=== PATIENT | female | born 1990 | race African-American/Black ===

== ENCOUNTER 2016-06-10 16:13 | Emergency (ER) | payer MEDICAID ==
[2016-06-10 16:24] VITALS: BP 131/85
--- NOTE | 2016-06-10 16:41 | ER Document Report ---
ED Medical Screen (RME) - General Chief Complaint: Vaginal Discharge Stated Complaint: ABDOMINAL PAIN, VAGINAL DISCHARGE Time seen by provider: 16:39 Mode of Arrival: Ambulatory Information source: Patient Notes: 25-year-old female presents to ED for vaginal discharge brown colored and abdominal pain that comes and goes for 3 days. States her period is due on but she has not started yet. Denies any nausea or vomiting. I have greeted and performed a rapid initial assessment of this patient. A comprehensive ED assessment and evaluation of the patient, analysis of test results and completion of medical decision making process will be conducted by an additional ED providers. TRAVEL OUTSIDE OF THE [place] IN LAST 30 DAYS: No - Related Data Allergies/Adverse Reactions: No Known Allergies Allergy (Unverified 02/04/16 15:36) Past Medical History Psychiatric Medical History: Reports: Hx Attention Deficit Hyperactivity Disorder Physical Exam - Vital signs Vitals: Temp Pulse Resp BP Pulse Ox 98.5 F 86 16 131/85 H 100 06/10/16 16:23 06/10/16 16:23 06/10/16 16:23 06/10/16 16:23 06/10/16 16:23 Course - Vital Signs Vital signs: Temp Pulse Resp BP Pulse Ox 98.5 F 86 16 131/85 H 100 06/10/16 16:23 06/10/16 16:23 06/10/16 16:23 06/10/16 16:23 06/10/16 16:23
[2016-06-10 17:19] LABS: APPEARANCE,URINE SLIGHTLY-CLOUDY; BILIRUBIN,URINE NEGATIVE (NEGATIVE); GLUCOSE, URINE NEGATIVE (NEGATIVE); KETONES,URINE NEGATIVE (NEGATIVE); LEUKOCYTE ESTERASE,URINE TRACE (NEGATIVE); NITRITE,URINE POSITIVE (NEGATIVE); PROTEIN,URINE 30 mg/dL (NEGATIVE); UROBILINOGEN,URINE NEGATIVE mg/dL (<2.0)
[2016-06-10 18:31] LABS: CHLAM PCR DETECTED (NOT DETECT)
== END 2016-06-10 18:30 | disposition left against medical advice (07) ==
LOC: ER 16:13
DX: N89.8 Other specified noninflammatory disorders of vagina (principal); R10.9 Unspecified abdominal pain; Z53.9 Procedure and treatment not carried out, unspecified reason
CPT/HCPCS: 81001; 81025; 87491; 87591; 99281

== ENCOUNTER 2016-06-11 11:25 | Emergency (ER) | payer MEDICAID ==
--- NOTE | 2016-06-11 11:46 | ER Document Report ---
ED Medical Screen (RME) - General Stated Complaint: SIDE PAIN Notes: 25 yo female c/o vaginal spotting 2-3 days and LLQ pain since last pm. negative home HCG yesterday. pt was seen in ED yesterday for same. pt did not have pain yesterday when she was seen. TRAVEL OUTSIDE OF THE [place] IN LAST 30 DAYS: No - Related Data Allergies/Adverse Reactions: No Known Allergies Allergy (Verified 06/11/16 11:43) Past Medical History Renal/ Medical History: Denies: Hx Peritoneal Dialysis Psychiatric Medical History: Reports: Hx Attention Deficit Hyperactivity Disorder Physical Exam - Vital signs Vitals: Temp Pulse Resp BP Pulse Ox 98.0 F 64 16 147/103 H 98 06/11/16 11:37 06/11/16 11:37 06/11/16 11:37 06/11/16 11:37 06/11/16 11:37 Course - Vital Signs Vital signs: Temp Pulse Resp BP Pulse Ox 98.0 F 64 16 147/103 H 98 06/11/16 11:37 06/11/16 11:37 06/11/16 11:37 06/11/16 11:37 06/11/16 11:37
--- NOTE | 2016-06-11 12:49 | ER Document Report ---
ED General - General Chief Complaint: Abdominal Pain Stated Complaint: SIDE PAIN Mode of Arrival: Ambulatory Information source: Patient Notes: Patient presents emergency department with reports of vaginal spotting for the past 4 days, noted when she wipes. She also reports lower abdominal pain since yesterday. Patient reports she is sexually active no control. . Patient denies other symptoms such as fever vomiting diarrhea. She denies trauma, pain with void. She denies vaginal irritation or vaginal discharge. Patient reports she came to the emergency department last night but left without being seen. TRAVEL OUTSIDE OF THE [place] IN LAST 30 DAYS: No - HPI Onset: Other - 4 days Onset/Duration: Persistent Quality of pain: Achy, Cramping Severity: Moderate Pain Level: 3 Associated symptoms: None Exacerbated by: Denies Relieved by: Denies Similar symptoms previously: No Recently seen / treated by doctor: No - Related Data Allergies/Adverse Reactions: No Known Allergies Allergy (Verified 06/11/16 12:39) Past Medical History - General Information source: Patient Last Menstrual Period: 05/13/16 - Social History Smoking Status: Never Smoker Chew tobacco use (# tins/day): No Frequency of alcohol use: None Drug Abuse: None Lives with: Family Family History: Reviewed & Not Pertinent Patient has suicidal ideation: No Patient has homicidal ideation: No Renal/ Medical History: Denies: Hx Peritoneal Dialysis Psychiatric Medical History: Reports: Hx Attention Deficit Hyperactivity Disorder Surgical Hx: Negative Review of Systems - Review of Systems Notes: Review HPI for review of systems., All other systems negative Physical Exam - Vital signs Vitals: Temp Pulse Resp BP Pulse Ox 98.0 F 64 16 147/103 H 98 06/11/16 11:37 06/11/16 11:37 06/11/16 11:37 06/11/16 11:37 06/11/16 11:37 - Notes Notes: PHYSICAL EXAMINATION: GENERAL: Well-appearing and in no acute distress nontoxic looking, laughs easily HEAD: Atraumatic, normocephalic. EYES: Pupils equal round , extraocular movements intact, sclera anicteric, conjunctiva are normal. ENT: nares patent, . Moist mucous membranes. NECK: Normal range of motion, supple without lymphadenopathy LUNGS: CTAB and equal. No wheezes rales or rhonchi. HEART: Regular rate and rhythm without murmurs ABDOMEN: Soft, c/o lower abdominal tenderness with palpation. No guarding, no rebound EXTREMITIES: Normal range of motion NEUROLOGICAL: Cranial nerves grossly intact. Normal sensory/motor PSYCH: Normal mood, normal affect. SKIN: Warm, Dry, normal turgor, no rashes or lesions noted Course - Re-evaluation Re-evalutation: 06/11/16 13:14 It was noted that patient was evaluated and urine ordered last night when patient came to the emergency department. Patient left without receiving treatment or further evaluation. Review of the urine shows she does have a UTI and chlamydia. Patient was updated on these results. Patient denies vaginal pain vaginal discharge. Patient reports she is not having any type of vaginal issues. Patient was also advised to have a pelvic done to check for Trichomonas. Patient declines a pelvic at this time reports she will follow-up with the health department. Patient was also advised to contact her partner's to let them know of her positive Chlamydia infection. She verbalized understanding. - Vital Signs Vital signs: Temp Pulse Resp BP Pulse Ox 98.0 F 63 16 146/99 H 100 06/11/16 13:25 06/11/16 13:25 06/11/16 12:40 06/11/16 13:25 06/11/16 13:25 - Transfer of Care Notes: 06/11/16 12:46 Patient instructed on plan of care blood work. Patient verbalized understanding. Discharge - Discharge Clinical Impression: Vaginal spotting, elevated blood pressure, Chlamydia UTI (urinary tract infection) Qualifiers: Urinary tract infection type: site unspecified Hematuria presence: without hematuria Qualified Code(s): N39.0 - Urinary tract infection, site not specified Condition: Stable Disposition: HOME, SELF-CARE Instructions: Azithromycin ([facility]), Chlamydia ([facility]), Nitrofurantoin ([facility]), [facility] [place], Urinary Tract Infection ([facility]), Urinary Tract Infection, Child ([facility]) Additional Instructions: *You have been evaluated for vaginal spotting, UTI, Chlamydia *Monitor your blood pressure. Your blood pressure was elevated today. This may be because you were anxious, in pain or because you need medication. It is important to follow up with your primary care provider for full evaluation. *Take medication as prescribe *inform all partners of your positive chlamydia *Follow up with your BICYCLE MESSENGER or the health department for recheck within one week *Avoid sexual intercourse until follow up *Return to ED for worsening condition, changes, needs Prescriptions: Nitrofurantoin/Nitrofuran Mac [Macrobid 100 mg Capsule] 100 mg PO BID #20 capsule Forms: Elevated Blood Pressure
[2016-06-11] MEDS ORDERED: AZITHROMYCIN 1 GM SUSP PACKET PO ONE (13:07)
[2016-06-11 13:27] VITALS: BP 146/99
== END 2016-06-11 13:35 | disposition home or self-care (01) ==
LOC: ER 11:25
DX: N39.0 Urinary tract infection, site not specified (principal); A74.9 Chlamydial infection, unspecified; R10.30 Lower abdominal pain, unspecified
CPT/HCPCS: 99284; Q0144

== ENCOUNTER 2016-08-03 10:12 | Emergency (ER) | payer MEDICAID ==
--- NOTE | 2016-08-03 10:22 | ER Document Report ---
ED Medical Screen (RME) - General Stated Complaint: TOOTHACHE Notes: 3 days with toothache and swelling. denies fevers chills. tolerating PO, denie SOB, difficulty swallowing. upper left jaw with fracture, fracutred two weeks ago dentist appointment in august I have greeted and performed a rapid initial assessment of this patient. A comprehensive ED assessment and evaluation of the patient, analysis of test results and completion of the medical decision making process will be conducted by additional ED providers. TRAVEL OUTSIDE OF THE [place] IN LAST 30 DAYS: No - Related Data Allergies/Adverse Reactions: No Known Allergies Allergy (Verified 08/03/16 10:19) Past Medical History Renal/ Medical History: Denies: Hx Peritoneal Dialysis Psychiatric Medical History: Reports: Hx Attention Deficit Hyperactivity Disorder - Immunizations Hx Diphtheria, Pertussis, Tetanus Vaccination: Yes Physical Exam - Vital signs Vitals: Temp Pulse Resp BP Pulse Ox 98.4 F 103 H 16 126/76 H 99 08/03/16 10:08/03/16 10:08/03/16 10:08/03/16 10:08/03/16 10:17 Course - Vital Signs Vital signs: Temp Pulse Resp BP Pulse Ox 98.4 F 103 H 16 126/76 H 99 08/03/16 10:08/03/16 10:08/03/16 10:08/03/16 10:17 08/03/16 10:17
--- NOTE | 2016-08-03 11:27 | ER Document Report ---
ED Oral Problem - General Chief Complaint: Toothache Stated Complaint: TOOTHACHE Time seen by provider: 11:25 Mode of Arrival: Ambulatory Information source: Patient Notes: 26-year-old female presents to ED for dental pain and swelling to the left upper and lower jaw. States she broke to tooth on the upper side 2 weeks ago. TRAVEL OUTSIDE OF THE [place] IN LAST 30 DAYS: No - HPI Patient complains to provider of: Toothache Onset: Other - 3 days Onset: Gradual Quality of pain: Sharp, Throbbing Severity: Severe Pain Level: 5 Associated symptoms: Toothache Worsened by: Cold Relieved by: Nothing Similar symptoms previously: Yes Recently seen / treated by doctor/dentist: No - Related Data Allergies/Adverse Reactions: No Known Allergies Allergy (Verified 08/03/16 10:19) Past Medical History - General Information source: Patient - Social History Smoking Status: Former Smoker Cigarette use (# per day): No Chew tobacco use (# tins/day): No Smoking Education Provided: No Frequency of alcohol use: None Drug Abuse: None Occupation: [employer] Lives with: Alone - With son Family History: CAD, Hyperlipidemia, Hypertension, Thyroid Disfunction Patient has suicidal ideation: No Patient has homicidal ideation: No - Past Medical History Cardiac Medical History: Reports: None Pulmonary Medical History: Reports: None EENT Medical History: Reports: None Neurological Medical History: Reports: None Endocrine Medical History: Reports: None Renal/ Medical History: Reports: None Malignancy Medical History: Reports: None GI Medical History: Reports: None Musculoskeltal Medical History: Reports None Skin Medical History: Reports None Psychiatric Medical History: Reports: Hx Attention Deficit Hyperactivity Disorder Traumatic Medical History: Reports: None Infectious Medical History: Reports: None Surgical Hx: Negative Past Surgical History: Reports: None - Immunizations Hx Diphtheria, Pertussis, Tetanus Vaccination: Yes Review of Systems - Review of Systems Constitutional: No symptoms reported EENT: Dental problem Cardiovascular: No symptoms reported Respiratory: No symptoms reported Gastrointestinal: No symptoms reported Genitourinary: No symptoms reported Female Genitourinary: No symptoms reported Musculoskeletal: Back pain Skin: No symptoms reported Hematologic/Lymphatic: No symptoms reported Neurological/Psychological: No symptoms reported -: Yes All other systems reviewed and negative Physical Exam - Vital signs Vitals: Temp Pulse Resp BP Pulse Ox 98.4 F 103 H 16 126/76 H 99 08/03/16 10:17 08/03/16 10:17 08/03/16 10:17 08/03/16 10:17 08/03/16 10:17 Interpretation: Normal - General General appearance: Appears well, Alert - HEENT Head: Normocephalic, Atraumatic Eyes: Normal Pupils: PERRL Ears: Normal External canal: Normal Tympanic membrane: Normal Sinus: Normal Nasal: Normal Teeth diagram: 1 - Dental pain with minimal swelling around the tooth. Tooth is broken and has been for 2 weeks. Pain started 3 days ago. Pharynx: Normal Neck: Normal - Respiratory Respiratory status: No respiratory distress Chest status: Nontender Breath sounds: Normal Chest palpation: Normal - Cardiovascular Rhythm: Regular Heart sounds: Normal auscultation Murmur: No - Abdominal Inspection: Normal Distension: No distension Bowel sounds: Normal Tenderness: Nontender Organomegaly: No organomegaly - Back Back: Normal, Nontender - Extremities General upper extremity: Normal inspection, Nontender, Normal color, Normal ROM , Normal temperature General lower extremity: Normal inspection, Nontender, Normal color, Normal ROM , Normal temperature, Normal weight bearing. No: Flakita's sign - Neurological Neuro grossly intact: Yes Cognition: Normal Orientation: AAOx4 [place] Coma Scale Eye Opening: Spontaneous [place] Coma Scale Verbal: Oriented [place] Coma Scale Motor: Obeys Commands [place] Coma Scale Total: 15 Speech: Normal Motor strength normal: LUE, RUE, LLE, RLE Sensory: Normal - Psychological Associated symptoms: Normal affect, Normal mood - Skin Skin Temperature: Warm Skin Moisture: Dry Skin Color: Normal Course - Vital Signs Vital signs: Temp Pulse Resp BP Pulse Ox 98.0 F 96 16 132/72 H 98 08/03/16 11:42 08/03/16 11:42 08/03/16 11:42 08/03/16 11:42 08/03/16 11:42 Discharge - Discharge Clinical Impression: Pain due to dental caries Condition: Stable Disposition: HOME, SELF-CARE Additional Instructions: TOOTHACHE: Your pain is due to dental decay. The tooth must be repaired in order for you to feel better. You will, therefore, be referred to a dentist. We do not have dentists on the staff at [facility]. Severe swelling or drainage around a tooth usually means a dental abscess. This also requires evaluation and treatment by the dentist, but antibiotics may be prescribed while awaiting dental treatment. You should be rechecked immediately if you develop major swelling of the face, increasing pain, a lump in the jaw or gums, headache, difficulty swallowing, or fever. ORAL NARCOTIC MEDICATION: You have been given a prescription for pain control. This medication is a narcotic. It's best taken with food, as nausea can result if taken on an empty stomach. Don't operate machinery or drive within six hours of taking this medication. Do not combine this medicine with alcohol, or with any medication which can cause sedation (such as cold tablets or sleeping pills) unless you get permission from the physician. Narcotics tend to cause constipation. If possible, drink plenty of fluids and eat a diet high in fiber and fruits. Please be aware that prescription narcotics also have the potential for abuse. People become addicted to these medications because of the general sense of wellbeing that they induce. This feeling along with a significant reduction in tension, anxiety, and aggression provides a stimulating seductive quality to these drugs. Once your pain is under control, we encourage you to discard your unused narcotics. PENICILLIN V K: You have been given a prescription for Penicillin VK. Your physician has determined that this is the best antibiotic for your condition. Pen VK can be taken with meals, however more of the antibiotic gets into the bloodstream if it's taken on an empty stomach. Penicillin usually has no side effects. However, allergy to penicillins is common. If you have had an allergic reaction to any drug of the penicillin family, you should never take any other penicillin. Notify your doctor at once if you develop hives, itching, swelling, faintness, or shortness of breath. Please complete the patient's satisfaction survey if you get one and return. If you do not receive a survey you can go to [facility] website [email or web address] and placed her comments about your very good care. Thank you very much. It was a pleasure be in your medical provider today. FOLLOW-UP CARE: You have been referred for follow-up care to the dentists listed below. Call the dentists office for an appointment as you were instructed or within the next two days. If you experience worsening or a significant change in your symptoms, notify the physician immediately or return to the Emergency Department at any time for re-evaluation. [facility] [address] [place], [place] Boris mornings, by appointment [facility] [address] [place] [address] [facility] [address] [facility] [address] [place] [facility] [address] [facility] [email or web address] [facility] [address] [place] [address] Thursday- 8:00am to 5:00 pm Will see patients from other [facility]. Charges based on income and family size and accepts Medicare, Medicaid, and Insurances Will pull molars [facility] [place] [address] Hours of Operation 8:00 am - 4:30 pm weekdays The following dental offices accept Medicaid: [facility] Dr. Morrison Dr. Yi Dr. Rodrigues Dr. Garcia Matthew Youssef Lutsavage, and Joi oral surgery Dr. Azul ([place]) Dr. Rg ([place]) [facility] Drs. Colon and Garrett ([place]) Dr. Cheng ([place]) [facility] Dr. Sandra ([place]) Drs. Amanda and ([place]) Medicaid Care Line Prescriptions: Hydrocodone/Acetaminophen [Hamler 5-325 mg Tablet] 1 tab PO Q6HP PRN #14 tablet PRN Reason: Penicillin V Potassium [Penicillin Vk 500 mg Tablet] 500 mg PO BID #20 tablet Forms: Elevated Blood Pressure, Return to Work Referrals: JACE BECERRA MD [Primary Care Provider] - Follow up as needed
[2016-08-03 11:43] VITALS: BP 132/72
== END 2016-08-03 11:30 | disposition home or self-care (01) ==
LOC: ER 10:12
DX: K02.9 Dental caries, unspecified (principal); K08.89 Other specified disorders of teeth and supporting structures; R68.84 Jaw pain; Z87.891 Personal history of nicotine dependence
CPT/HCPCS: 99282

== ENCOUNTER 2016-08-10 14:13 | Emergency (ER) | payer MEDICAID ==
[2016-08-10 14:21] VITALS: BP 131/81
--- NOTE | 2016-08-10 14:30 | ER Document Report ---
ED Medical Screen (RME) - General Stated Complaint: VAGINAL BLEEDING Mode of Arrival: Ambulatory Information source: Patient Notes: Patient presents to the emergency department spotting reports low back pain. Reports symptoms started a few days ago. I have greeted and performed a rapid initial assessment of this patient. A comprehensive ED assessment and evaluation of the patient, analysis of test results and completion of the medical decision making process will be conducted by additional ED providers. TRAVEL OUTSIDE OF THE [place] IN LAST 30 DAYS: No - Related Data Allergies/Adverse Reactions: No Known Allergies Allergy (Verified 08/10/16 14:29) Past Medical History Renal/ Medical History: Denies: Hx Peritoneal Dialysis Psychiatric Medical History: Reports: Hx Attention Deficit Hyperactivity Disorder - Immunizations Hx Diphtheria, Pertussis, Tetanus Vaccination: Yes Physical Exam - Vital signs Vitals: Temp Pulse Resp BP Pulse Ox 98.2 F 106 H 14 131/81 H 97 08/10/16 14:20 08/10/16 14:20 08/10/16 14:20 08/10/16 14:20 08/10/16 14:20 Course - Vital Signs Vital signs: Temp Pulse Resp BP Pulse Ox 98.2 F 106 H 14 131/81 H 97 08/10/16 14:20 08/10/16 14:20 08/10/16 14:20 08/10/16 14:20 08/10/16 14:20
[2016-08-10 14:57] LABS: ABSOLUTE EOSINOPHILS # (AUTO) 0.1 10^3/uL (0.0-0.6); ABSOLUTE LYMPHOCYTES (AUTO) 2.4 10^3/uL (0.5-4.7); ABSOLUTE MONOCYTES (AUTO) 0.6 10^3/uL (0.1-1.4); ABSOLUTE NEUT (AUTO) 2.9 10^3/uL (1.7-8.2); BASOPHILS % (AUTO) 0.3 % (0-2); EOSINOPHILS % (AUTO) 1.5 % (0-6); HEMATOCRIT 29.9 % (36.0-47.0); HEMOGLOBIN 9.4 g/dL (12.0-15.5); HGB HCT DIFFERENCE -1.7; LYMPHOCYTES % (AUTO) 40.7 % (13-45); MEAN CORPUSCULAR HEMOGLOBIN 21.2 pg (27.0-33.4); MEAN CORPUSCULAR HGB CONC 31.3 g/dL (32.0-36.0); MEAN CORPUSCULAR VOLUME 68 fl (80-97); MONOCYTES % (AUTO) 9.2 % (3-13); RED CELL DISTRIBUTION WIDTH 18.6 % (11.5-14.0); SEGMENTED NEUTROPHILS % (AUTO) 48.3 % (42-78)
[2016-08-10 15:12] LABS: ALANINE AMINOTRANSFERASE 24 U/L (9-52); ALBUMIN 3.9 g/dL (3.5-5.0); ALKALINE PHOSPHATASE 70 U/L (38-126); ANION GAP 10 (5-19); ASPARTATE AMINO TRANSFERASE 23 U/L (14-36); BILIRUBIN,DIRECT 0.2 mg/dL (0.0-0.4); BILIRUBIN,TOTAL 0.4 mg/dL (0.2-1.3); BLOOD UREA NITROGEN 11 mg/dL (7-20); CALCIUM 9.3 mg/dL (8.4-10.2); CARBON DIOXIDE 24 mmol/L (22-30); CHLORIDE 105 mmol/L (98-107); CREATININE RESULT 0.58 mg/dL (0.52-1.25); GLUCOSE 87 mg/dL (75-110); POTASSIUM 3.9 mmol/L (3.6-5.0); SODIUM 139.3 mmol/L (137-145); TOTAL PROTEIN 6.9 g/dL (6.3-8.2)
--- NOTE | 2016-08-10 15:58 | ER Document Report ---
ED GI/ - General Time seen by provider: 16:00 Mode of Arrival: Ambulatory Information source: Patient TRAVEL OUTSIDE OF THE U.S. IN LAST 30 DAYS: No - HPI Patient complains to provider of: Onset: Other - see HPI note Vaginal bleeding (Compared to normal period): Spotting Menstrual period history: LMP: 07/09/16 Associated symptoms: denies: Dysuria Similar symptoms previously: No Recently seen / treated by doctor: No <ELEN MOORE - Last Filed: 08/10/16 20:12> <FLOR JARVIS - Last Filed: 08/18/16 11:56> - General Chief Complaint: Vag Bleeding, +preg <12wks Stated Complaint: VAGINAL BLEEDING Notes: Patient is a 26 year old female presenting to the ED for some spotting and mild back pain. Patient states she took a home test a few weeks ago that was positive. [facility] but they have not done any labs/ ultrasound yet. Patient states she has an incompetent cervix and has had 2 previous miscarriages (the first at 21 weeks and the second at 17 weeks). Patient denies any abdominal pain or urinary symptoms. Patient has one other child. Patient has no known allergies. (ELEN MOORE) - Related Data Allergies/Adverse Reactions: No Known Allergies Allergy (Verified 08/10/16 14:29) Past Medical History - General Information source: Patient - Social History Smoking Status: Current Every Day Smoker Chew tobacco use (# tins/day): No Frequency of alcohol use: None Drug Abuse: None Family History: None, CAD, Hyperlipidemia, Hypertension, Thyroid Disfunction Patient has suicidal ideation: No Patient has homicidal ideation: No Psychiatric Medical History: Reports: Hx Attention Deficit Hyperactivity Disorder Surgical Hx: Negative - Immunizations Hx Diphtheria, Pertussis, Tetanus Vaccination: Yes <ELEN MOORE - Last Filed: 08/10/16 20:12> Review of Systems - Review of Systems Constitutional: No symptoms reported EENT: No symptoms reported Cardiovascular: No symptoms reported Respiratory: No symptoms reported Gastrointestinal: No symptoms reported Genitourinary: No symptoms reported Female Genitourinary: See HPI, Last menstrual period - 07/09/16, , Other - spotting Musculoskeletal: See HPI, Back pain Skin: No symptoms reported Hematologic/Lymphatic: No symptoms reported Neurological/Psychological: No symptoms reported -: Yes All other systems reviewed and negative <ELEN MOORE - Last Filed: 08/10/16 20:12> Physical Exam - Vital signs Interpretation: Normal - General General appearance: Appears well, Alert In distress: Mild - HEENT Head: Normocephalic, Atraumatic Eyes: Normal Pupils: PERRL Mucous membranes: Moist - Respiratory Respiratory status: No respiratory distress Chest status: Nontender Breath sounds: Normal Chest palpation: Normal - Cardiovascular Rhythm: Regular Heart sounds: Normal auscultation Murmur: No - Abdominal Inspection: Normal Distension: No distension Bowel sounds: Normal Tenderness: Nontender Organomegaly: No organomegaly - Back Back: Normal, Nontender - Extremities General upper extremity: Normal inspection, Normal ROM, Normal strength General lower extremity: Normal inspection, Normal ROM, Normal strength - Neurological Neuro grossly intact: Yes Cognition: Normal Orientation: AAOx4 [place] Coma Scale Eye Opening: Spontaneous [place] Coma Scale Verbal: Oriented [place] Coma Scale Motor: Obeys Commands [place] Coma Scale Total: 15 Speech: Normal - Psychological Associated symptoms: Normal affect, Normal mood - Skin Skin Temperature: Warm Skin Moisture: Dry <ELEN MOORE - Last Filed: 08/10/16 20:12> Course - Laboratory Result Diagrams: 08/10/16 14:35 08/10/16 14:35 <ELEN MOORE - Last Filed: 08/10/16 20:12> - Laboratory Result Diagrams: 08/10/16 14:35 08/10/16 14:35 <SIMONAFLOR - Last Filed: 08/18/16 11:56> - Re-evaluation Re-evalutation: 08/10/16 16:35 I personally performed the services described in the documentation, reviewed and edited the documentation which was dictated to my scribe in my presence, and it accurately records my words and actions. presents the emergency department says she had a home test which was positive and she's been spotting ever since. The spotting has not changed at all. She says she is not sexually active she denies any abdominal pain flank pain fever chills chest pain cough nausea vomiting or diarrhea. She has had 2 miscarriages in the past with her last had a incompetent cervix. On examination she is well-appearing nontoxic her abdomen is soft no guarding rebound rigidity her quantitative hCG is very low therefore the ultrasound that the APC ordered is not reliable you can't see anything nor can you exclude ectopic or miscarriage. At this time given her follow-up with [facility] and a prescription to get her hCG quantitative redrawn in 48 hours. She is to return for increasing worsening or new symptoms (FLOR JARVIS) - Vital Signs Vital signs: Temp Pulse Resp BP Pulse Ox 98.2 F 106 H 14 131/81 H 97 08/10/16 14:20 08/10/16 14:20 08/10/16 14:20 08/10/16 14:20 08/10/16 14:20 - Laboratory Laboratory results interpreted by me: 08/10/16 08/10/16 14:35 14:35 Hgb 9.4 L Hct 29.9 L MCV 68 L MCH 21.2 L MCHC 31.3 L RDW 18.6 H Beta HCG, Quant 670.37 H Discharge <ELEN MOORE - Last Filed: 08/10/16 20:12> <FLOR JARVIS - Last Filed: 08/18/16 11:56> - Discharge Clinical Impression: vaginal spotting early Condition: Stable Disposition: HOME, SELF-CARE Additional Instructions: : You are . care is best started as early in as possible. If you're unsure about continuing this , you should discuss this with your physician or with [facility] at [facility]. You should take only medications approved by your physician. Acetaminophen can safely be taken for minor pains. As a rule, medication for chronic conditions such as asthma or seizures can safely be continued. You should discuss with the physician every medicine you take. Any regular exercise program can be continued. Talk to your physician, however, before engaging in competitive or demanding sports. Alcohol, smoking, and "street drugs" are dangerous to your baby. Cocaine is especially dangerous. Don't use any illicit drugs! BLEEDING DURING EARLY : You have been evaluated for passing blood while . While we take this symptom very seriously, most women with your degree of bleeding will go on to have a perfectly normal baby. At this time, there is no indication that a miscarriage will occur. (A miscarriage occurs when the fetus is abnormal. There is no medicine or treatment to prevent it.) A more serious cause of bleeding is tubal (or ectopic) . An ultrasound usually can show whether the is in the uterus or in the tube. Sometimes in early , no fetus is seen. In this case, careful follow-up, including repeat blood tests and repeat ultrasound, is necessary. Do not douche or have sex for at least a week, or until OK'd by the doctor. Don't use tampons. Call the doctor or return for re-examination if there is an increase in bleeding or cramping, extreme weakness, fainting, new abdominal pain, fever, or passage of tissue. THREATENED MISCARRIAGE: You have been evaluated for a possible miscarriage. At this time, there is no indication that a miscarriage will occur. Most women with your symptoms will go on to have a perfectly normal baby. However, careful observation will be necessary. A miscarriage occurs when the fetus is abnormal. There is no medicine or treatment for it. You should rest in bed until the symptoms have resolved. Do not douche or have sex for at least a week, or until OK'd by the doctor. Call the doctor or return for re-examination if there is an increase in bleeding or cramping, or passage of tissue. REPEAT BLOOD TEST: At this time, it is uncertain if you have a viable . During the first three months of , the hormone produced from the placenta will steadily rise, usually doubling in value every 2 - 3 days. In order to determine if your is viable and likely be succesful, a repeat of this blood test for the hormone is recommended in 2 - 3 days. An order for this test to be done as an outpatient is being provided. After you have this repeat test done, call your doctor or call us for the results. If the value of the test is increasing as would be expected in a normal , then your is likely to be ok. However, if the value of the test is declining, it will suggest something has happened with your and it will not likely be a successful . FOLLOW-UP CARE: If you have been referred to a physician for follow-up care, call the physician s office for an appointment as you were instructed or within the next two days. If you experience worsening or a significant change in your symptoms (very heavy bleeding with large clots of blood, passage of tissue, more severe abdominal / pelvic pain or cramping, feeling faint or severe weakness, fever, etc.), notify the physician immediately or return to the Emergency Department at any time for re-evaluation. OBSTETRIC-GYNECOLOGIC (OB-COMPUTER TYPESETTER) PHYSICIANS IN [place]: [facility] [address] [place] [address] [phone] Referrals: SUMIT VELEZ MD [Primary Care Provider] - Follow up as needed [facility] [Provider Group] - Follow up in 3-5 days (in 2-3 days return to the emergency from sooner for increasing worsening or new symptoms) Scribe Documentation - Scribe Written by Scribe:: Elen Moore 08/10/16 20:20 acting as scribe for :: Simona <ELEN MOORE - Last Filed: 08/10/16 20:12>
== END 2016-08-10 17:12 | disposition home or self-care (01) ==
LOC: ER 14:13
DX: O26.851 Spotting complicating pregnancy, first trimester (principal); O26.891 Other specified pregnancy related conditions, first trimester; O99.89 Other specified diseases and conditions complicating pregnancy, childbirth and the puerperium; M54.9 Dorsalgia, unspecified; O99.331 Smoking (tobacco) complicating pregnancy, first trimester; F17.200 Nicotine dependence, unspecified, uncomplicated; Z3A.01 Less than 8 weeks gestation of pregnancy; Z86.79 Personal history of other diseases of the circulatory system
CPT/HCPCS: 36415; 76817; 80053; 84702; 85025; 86900; 86901; 99284

== ENCOUNTER 2016-09-07 12:19 | Emergency (ER) | payer MEDICAID ==
--- NOTE | 2016-09-07 13:26 | ER Document Report ---
HPI - HPI Patient complains to provider of: back pain Pain Level: 3 Context: 26 yo female 8 wk , c/o mid low back pain x 2 days. no urinary symptoms , no fever, no radiculopathy, no paresthesias, no bowel/bladder change. no trauma recalled. pt works at [employer], + prolonged standing. Pt has appointment with OB in 2 days. Denies any vaginal bleeding or related complaints Associated Symptoms: None Exacerbated by: Standing, Movement, Walking Relieved by: Denies Similar symptoms previously: Yes Recently seen / treated by doctor: No - ROS Systems Reviewed and Negative: Yes All other systems reviewed and negative - REPRODUCTIVE Reproductive: DENIES: : - DERM Skin Color: Normal Past Medical History - General Information source: Patient - Social History Smoking Status: Never Smoker Frequency of alcohol use: None Drug Abuse: None Lives with: Family Family History: None, CAD, Hyperlipidemia, Hypertension, Thyroid Disfunction Patient has suicidal ideation: No Patient has homicidal ideation: No Renal/ Medical History: Denies: Hx Peritoneal Dialysis Psychiatric Medical History: Reports: Hx Attention Deficit Hyperactivity Disorder - Immunizations Hx Diphtheria, Pertussis, Tetanus Vaccination: Yes Vertical Provider Document - CONSTITUTIONAL Agree With Documented VS: Yes Exam Limitations: No Limitations - INFECTION CONTROL TRAVEL OUTSIDE OF THE [place] IN LAST 30 DAYS: No - HEENT HEENT: Atraumatic, PERRLA - NECK Neck: Normal Inspection, Supple - RESPIRATORY Respiratory: Breath Sounds Normal, No Respiratory Distress O2 Sat by Pulse Oximetry: 98 - CARDIOVASCULAR Cardiovascular: Regular Rate, Regular Rhythm - GI/ABDOMEN Gastrointestinal: Abdomen Soft, Abdomen Non-Tender - BACK Back: Abnormal Inspection - + mid lumbar paraspinal tenderness. neg heel/toe. walks without difficulty. changes position without difficulty - MUSCULOSKELETAL/EXTREMETIES Musculoskeletal/Extremeties: MELANIA CROWLEY - NEURO Level of Consciousness: Awake, Alert, Appropriate - DERM Integumentary: Warm, Dry Course - Vital Signs Vital signs: Temp Pulse Resp BP Pulse Ox 98.2 F 102 H 18 126/68 H 98 09/07/16 12:23 09/07/16 12:23 09/07/16 12:23 09/07/16 12:23 09/07/16 12:23 Discharge - Discharge Clinical Impression: Lumbar strain Qualifiers: Encounter type: initial encounter Qualified Code(s): S39.012A - Strain of muscle, fascia and tendon of lower back, initial encounter Condition: Stable Disposition: HOME, SELF-CARE Instructions: Ice Packs ([facility]), Warm Packs ([facility]), Low Back Pain ([facility]) Additional Instructions: alternate ice/heat to sore area follow up with OB as scheduled Forms: Return to Work
[2016-09-07 14:05] VITALS: BP 117/74
== END 2016-09-07 13:44 | disposition home or self-care (01) ==
LOC: ER 12:19
DX: S39.012A Strain of muscle, fascia and tendon of lower back, initial encounter (principal); M54.5 Low back pain; X58.XXXA Exposure to other specified factors, initial encounter
CPT/HCPCS: 99283

== ENCOUNTER 2016-10-17 05:50 | Day surgery (SDC) | payer MEDICAID ==
[2016-10-16 11:55] LABS: HEMATOCRIT 29.8 % (36.0-47.0); HEMOGLOBIN 9.1 g/dL (12.0-15.5); HGB HCT DIFFERENCE -2.5; MEAN CORPUSCULAR HGB CONC 30.5 g/dL (32.0-36.0); MEAN CORPUSCULAR VOLUME 69 fl (80-97); RED BLOOD COUNT 4.32 10^6/uL (3.72-5.28); RED CELL DISTRIBUTION WIDTH 20.7 % (11.5-14.0); WHITE BLOOD COUNT 5.2 10^3/uL (4.0-10.5)
[2016-10-16 12:01] LABS: AMORPHOUS SEDIMENT,URINE TRACE /HPF; APPEARANCE,URINE CLOUDY; BILIRUBIN,URINE NEGATIVE (NEGATIVE); GLUCOSE, URINE NEGATIVE (NEGATIVE); KETONES,URINE NEGATIVE (NEGATIVE); LEUKOCYTE ESTERASE,URINE TRACE (NEGATIVE); NITRITE,URINE NEGATIVE (NEGATIVE); PROTEIN,URINE NEGATIVE (NEGATIVE); URINE SPECIFIC GRAVITY 1.023; UROBILINOGEN,URINE NEGATIVE mg/dL (<2.0)
[~2016-10-17 05:50] MED LIST: CEFAZOLIN 1 GM/D5W RTU 1 GM/50 ML RTUPB IV PRN; LACTATED RINGERS 1000 ML IV PRN; LIDOCAINE 0.5% INJ-PF (5 MG/ML) 50 ML SDV SUBCUT PRN
[2016-10-17] MEDS ORDERED: PROPOFOL INJ 200 MG/20 ML VIAL IV ONE (07:29)
[2016-10-17] MEDS ORDERED: IBUPROFEN 800 MG TABLET ONE (08:32)
--- NOTE | 2016-10-17 08:48 | OPERATIVE REPORT E ---
Operative Report NAME: SIOMARA MAYEN : 1990 AGE: 26Y DATE OF SURGERY: 10/17/2016 ROOM: PREOPERATIVE DIAGNOSIS: INTRAUTERINE AT 14 PLUS WEEKS WITH KNOWN HISTORY OF CERVICAL INCOMPETENCE. POSTOPERATIVE DIAGNOSIS: INTRAUTERINE AT 14 PLUS WEEKS WITH KNOWN HISTORY OF CERVICAL INCOMPETENCE. OPERATION: Dumont cervical cerclage - 2 stitch. SURGEON: LA EARL M.D. ANESTHESIA: Spinal. ESTIMATED BLOOD LOSS: 3 mL. TISSUE REMOVED OR ALTERED: None. FINDINGS: The vagina had no abnormal discharge. The cervix was soft, but still had a fairly normal length. heart tones were 140s in recovery. DESCRIPTION OF PROCEDURE: After discussing risks, benefits and alternatives of the procedure and obtaining informed consent, the patient was taken to the operating room where spinal anesthesia was achieved. She was positioned in the dorsal lithotomy position, prepped and draped in the usual standard fashion. Bladder was drained via intake and output catheterization. Weighted speculum was placed in the vagina and [place] placed anteriorly. The cervix was grasped with a ringed forceps. Using #2 Ethibond, a pursestring stitch was placed in the cervix. This was tagged and a second pursestring stitch with #2 Ethibond was placed. The stitches were then tied down. The knots were tied at 12 o'clock. The vagina was irrigated copiously. The patient was taken out of dorsal lithotomy and to recovery in stable condition. All sponge, needle, lap, and instrument counts were correct x2. DICTATING PHYSICIAN: LA EARL M.D. [id number] PHY#: [id number] ID: [id number] JOB#: [id number] ACCT: [id number] cc:LA EARL M.D. >
[2016-10-17 11:52] VITALS: BP 108/52
== END 2016-10-17 11:45 | disposition home or self-care (01) ==
LOC: OROUT 05:50
PROVIDERS: ATTEND Specialist
PROC: 0UVC7ZZ Restriction of Cervix, Via Natural or Artificial Opening (ICD-10-PCS; principal; 2016-10-17 07:30)
DX: O34.32 Maternal care for cervical incompetence, second trimester (principal)
CPT/HCPCS: 36415; 85027; 81001; 59320; J0690; J3490; J2704; 948

== ENCOUNTER 2016-12-24 18:23 | Outpatient (CLI) | payer MEDICAID ==
[2016-12-24 19:19] LABS: APPEARANCE,URINE CLEAR; BILIRUBIN,URINE NEGATIVE (NEGATIVE); GLUCOSE, URINE NEGATIVE (NEGATIVE); KETONES,URINE NEGATIVE (NEGATIVE); LEUKOCYTE ESTERASE,URINE NEGATIVE (NEGATIVE); NITRITE,URINE NEGATIVE (NEGATIVE); PROTEIN,URINE NEGATIVE (NEGATIVE); URINE SPECIFIC GRAVITY 1.016; UROBILINOGEN,URINE NEGATIVE mg/dL (<2.0)
[2016-12-24 19:24] LABS: AMNISURE (ROM) NEGATIVE (NEGATIVE)
[2016-12-24 19:39] LABS: URINE BARBITURATES SCREEN NEGATIVE; URINE METHADONE SCREEN NEGATIVE; URINE OPIATES LOW NEGATIVE; URINE PHENCYCLIDINE SCREEN NEGATIVE
== END 2016-12-24 20:13 | disposition home or self-care (01) ==
LOC: LC 18:23
PROVIDERS: ATTEND Obstetrics & Gynecology
PROC: 4A1HXCZ Monitoring of Products of Conception, Cardiac Rate, External Approach (ICD-10-PCS; principal; 2016-12-24)
DX: Z36 Encounter for antenatal screening of mother (principal); Z3A.24 24 weeks gestation of pregnancy
CPT/HCPCS: 59899; 84112; 81001; 80307; G0480 ×2

== ENCOUNTER 2017-01-06 09:39 | Outpatient (CLI) | payer MEDICAID ==
[2017-01-06 10:16] LABS: APPEARANCE,URINE SLIGHTLY-CLOUDY; BILIRUBIN,URINE NEGATIVE (NEGATIVE); GLUCOSE, URINE NEGATIVE (NEGATIVE); KETONES,URINE 20 mg/dL (NEGATIVE); LEUKOCYTE ESTERASE,URINE TRACE (NEGATIVE); NITRITE,URINE NEGATIVE (NEGATIVE); PROTEIN,URINE NEGATIVE (NEGATIVE); URINE SPECIFIC GRAVITY 1.024; UROBILINOGEN,URINE NEGATIVE mg/dL (<2.0)
[2017-01-06] MEDS ORDERED: BETAMET ACET/BETAMET NA INJ 6 MG/1 ML ONE (10:19)
[2017-01-06 10:31] LABS: AMNISURE (ROM) NEGATIVE (NEGATIVE)
[2017-01-06 10:40] LABS: URINE BARBITURATES SCREEN NEGATIVE; URINE METHADONE SCREEN NEGATIVE; URINE OPIATES LOW NEGATIVE; URINE PHENCYCLIDINE SCREEN NEGATIVE
[2017-01-06 13:30] LABS: CHLAM PCR NOT DETECTED (NOT DETECT)
== END 2017-01-06 13:40 | disposition home or self-care (01) ==
LOC: LC 09:39
PROVIDERS: ATTEND Obstetrics & Gynecology
PROC: 4A1HXCZ Monitoring of Products of Conception, Cardiac Rate, External Approach (ICD-10-PCS; principal; 2017-01-06)
DX: O47.02 False labor before 37 completed weeks of gestation, second trimester (principal); Z3A.25 25 weeks gestation of pregnancy
CPT/HCPCS: 96372; 84112; 87210; 81001; 80307; 87491; 87591; 59899; G0480 ×2; J0702

== ENCOUNTER 2017-01-07 10:16 | Outpatient (CLI) | payer MEDICAID ==
[2017-01-07] MEDS ORDERED: BETAMET ACET/BETAMET NA INJ 6 MG/1 ML ONE (10:25)
[2017-01-07] MEDS ORDERED: BETAMET ACET/BETAMET NA INJ 6 MG/1 ML IM ONE (10:30)
== END 2017-01-07 11:18 | disposition home or self-care (01) ==
LOC: LC 10:16
PROVIDERS: ATTEND Specialist
PROC: 4A1HXCZ Monitoring of Products of Conception, Cardiac Rate, External Approach (ICD-10-PCS; principal; 2017-01-07)
DX: O47.02 False labor before 37 completed weeks of gestation, second trimester (principal); Z3A.35 35 weeks gestation of pregnancy
CPT/HCPCS: 96372; 59899; J0702

== ENCOUNTER 2017-07-10 06:27 | Day surgery (SDC) | payer MEDICAID ==
[2017-07-09 10:22] LABS: APPEARANCE,URINE SLIGHTLY-CLOUDY; BILIRUBIN,URINE NEGATIVE (NEGATIVE); COLOR,URINE YELLOW; GLUCOSE, URINE NEGATIVE (NEGATIVE); KETONES,URINE NEGATIVE (NEGATIVE); LEUKOCYTE ESTERASE,URINE MODERATE (NEGATIVE); NITRITE,URINE NEGATIVE (NEGATIVE); PROTEIN,URINE NEGATIVE (NEGATIVE)
[2017-07-09 10:31] LABS: MEAN CORPUSCULAR HEMOGLOBIN 22.8 pg (27.0-33.4); MEAN CORPUSCULAR HGB CONC 32.2 g/dL (32.0-36.0); MEAN CORPUSCULAR VOLUME 71 fl (80-97); PLATELET COUNT 214 10^3/uL (150-450); RED BLOOD COUNT 4.38 10^6/uL (3.72-5.28); RED CELL DISTRIBUTION WIDTH 20.2 % (11.5-14.0); WHITE BLOOD COUNT 4.2 10^3/uL (4.0-10.5)
[~2017-07-10 06:27] MED LIST changes: -CEFAZOLIN 1 GM/D5W RTU 1 GM/50 ML RTUPB IV PRN
[2017-07-10] MEDS ORDERED: FENTANYL CITRATE INJ/PF 100 MCG/2 ML AMPUL ONE (07:17)
[2017-07-10] MEDS ORDERED: METOCLOPRAMIDE HCL INJ/PF 10 MG/2 ML SDV ONE (07:19)
[2017-07-10] MEDS ORDERED: BUPIVACAINE HCL/DEX-WATER/PF 15 MG/2 ML AMPULE ONE ×2 (07:22→07:24)
[2017-07-10] MEDS ORDERED: METOCLOPRAMIDE HCL INJ/PF 10 MG/2 ML SDV IV ONE (08:00)
[2017-07-10] MEDS ORDERED: DIPHENHYDRAMINE HCL 50 MG/ML VIAL IV PRN (08:01)
[2017-07-10] MEDS ORDERED: FENTANYL CITRATE INJ/PF 100 MCG/2 ML AMPUL IV PRN ×3 (08:01)
[2017-07-10] MEDS ORDERED: ONDANSETRON HCL INJ/PF 4 MG/2 ML SDV IV PRN (08:01)
--- NOTE | 2017-07-10 08:17 | Operative Report ---
Operative Report DATE OF SURGERY: 07/10/17 PREOPERATIVE DIAGNOSIS: History of cervical incompetence POSTOPERATIVE DIAGNOSIS: Same OPERATION: Dumont cerclage SURGEON: VIMAL WATT ANESTHESIA: Spinal TISSUE REMOVED OR ALTERED: None COMPLICATIONS: None ESTIMATED BLOOD LOSS: None INTRAOPERATIVE FINDINGS: Normal-appearing cervix with scars from previous cerclage PROCEDURE: Patient was taken back to the OR and placed in supine position after her spinal. She was then placed in dorsolithotomy position using Chuck stirrups. The perineum and vagina were prepared and draped in sterile fashion. She had voided prior to the procedure and did not need a catheterization. The weighted speculum was placed in the vagina. Additional retractors were also used for exposure. The cervix was grasped with a ring clamp. A #1 Ethibond suture was then placed from 12:00 to 9:00 on the cervix the 9:00 to 6:00 6:00 to 3:00 and 3 :00 back to 12:00 a completing a Dumont cerclage. This was then tied. The cerclage was placed appropriately high in the cervix and it was deemed a second stitch was not needed. All instruments were then removed. She is placed back in supine position and taken to recovery room in stable condition
[2017-07-10] MEDS ORDERED: IBUPROFEN 800 MG TABLET PO PRN (08:42)
[2017-07-10] MEDS ORDERED: OXYCODONE-ACETAMINOPHEN 5-325 MG TABLET PO PRN ×2 (08:42)
[2017-07-10] MEDS ORDERED: ACETAMINOPHEN 100 ML IV ONE (08:45)
--- NOTE | 2017-07-10 09:16 | RADIOLOGY REPORT (SQ) ---
EXAM DESCRIPTION: U/S OB LIMITED COMPLETED DATE/TIME: 07/10/2017 8:59 am REASON FOR STUDY: heart tones and cervical length N88.3 INCOMPETENCE OF CERVIX UTERI COMPARISON: None. TECHNIQUE: Limited transabdominal grayscale ultrasound for evaluation of specific requested obstetri brian parameters. LIMITATIONS: None. FINDINGS: CERVICAL LENGTH: 2.8 cm, cerclage placed today. Closed. PLACENTA: Fundal left, grade 1 FHR: 155 beats per minute. PRESENTATION: Variable OTHER: No other significant findings. IMPRESSION: LIMITED OBSTETRICAL ULTRASOUND WITH MEASURED PARAMETERS DELINEATED ABOVE. Trimester of : Second trimester - 13 weeks 1 day to 27 weeks 6 days. TECHNICAL DOCUMENTATION: JOB ID: [id number] [employer]- All Rights Reserved
[2017-07-10 12:36] VITALS: BP 110/75
== END 2017-07-10 11:45 | disposition home or self-care (01) ==
LOC: OROUT 06:27
PROVIDERS: ATTEND Obstetrics & Gynecology
PROC: 0UVC7ZZ Restriction of Cervix, Via Natural or Artificial Opening (ICD-10-PCS; principal; 2017-07-10 07:30)
DX: Z34.82 Encounter for supervision of other normal pregnancy, second trimester (principal); O34.32 Maternal care for cervical incompetence, second trimester; Z79.899 Other long term (current) drug therapy; F17.210 Nicotine dependence, cigarettes, uncomplicated
CPT/HCPCS: 36415; 85027; 81001; 76815; 59320; J3490; J3010; J2765; J0131; 948

== ENCOUNTER 2017-07-11 10:15 | Emergency (ER) | payer MEDICAID ==
--- NOTE | 2017-07-11 10:30 | ER Document Report ---
ED Medical Screen (RME) - General Chief Complaint: Pelvic Problem Stated Complaint: PELVIC PAIN Time Seen by Provider: 07/11/17 10:27 Mode of Arrival: Ambulatory Information source: Patient TRAVEL OUTSIDE OF THE [place] IN LAST 30 DAYS: No - HPI Patient complains to provider of: pelvic pain Onset: This morning - pt. had cerclage procedure done yesterday per Dr. Castro - - is having dischanrge and cramps this am - Related Data Allergies/Adverse Reactions: No Known Allergies Allergy (Verified 07/09/17 10:17) Past Medical History - Past Medical History Cardiac Medical History: Denies: Hx Coronary Artery Disease, Hx Heart Attack, Hx Hypertension Pulmonary Medical History: Denies: Hx Asthma, Hx Bronchitis, Hx COPD, Hx Pneumonia Neurological Medical History: Denies: Hx Cerebrovascular Accident, Hx Seizures Renal/ Medical History: Denies: Hx Peritoneal Dialysis Musculoskeltal Medical History: Denies Hx Arthritis Psychiatric Medical History: Reports: Hx Attention Deficit Hyperactivity Disorder - Immunizations Hx Diphtheria, Pertussis, Tetanus Vaccination: Yes History of Influenza Vaccine for 02/2017 - 07/2017 Season: No Physical Exam - Vital signs Vitals: Temp Pulse Resp BP Pulse Ox 97.7 F 103 H 16 110/70 99 07/11/17 10:22 07/11/17 10:07/11/17 10:07/11/17 10:07/11/17 10:22 Course - Vital Signs Vital signs: Temp Pulse Resp BP Pulse Ox 97.7 F 103 H 16 110/70 99 07/11/17 10:22 07/11/17 10:22 07/11/17 10:07/11/17 10:22 07/11/17 10:22
[2017-07-11] MEDS ORDERED: ACETAMINOPHEN 325 MG TABLET PO ONE (11:03)
--- NOTE | 2017-07-11 11:10 | ER Document Report ---
ED General - General Chief Complaint: Pelvic Problem Stated Complaint: PELVIC PAIN Time Seen by Provider: 07/11/17 10:27 Mode of Arrival: Ambulatory Notes: She had cerclage for incompetent cervix. 14 weeks . Was having increasing amount of discomfort after procedure. Thought that she might have a string hanging. Was seen initially at triage. D[facility]IA SPECIALIST was notified. Dr. Shelton with [facility] had seen patient prior to my arrival. Has all ready done physical exam. Talk to the patient as well. TRAVEL OUTSIDE OF THE [place] IN LAST 30 DAYS: No - HPI Onset: Yesterday Onset/Duration: Gradual Quality of pain: Achy Severity: Moderate Pain Level: 3 Associated symptoms: None - Related Data Allergies/Adverse Reactions: No Known Allergies Allergy (Verified 07/11/17 10:31) Past Medical History - General Information source: Patient Last Menstrual Period: 01-04-2018 - Social History Smoking Status: Never Smoker Chew tobacco use (# tins/day): No Frequency of alcohol use: None Drug Abuse: None Family History: None, CAD, Hyperlipidemia, Hypertension, Thyroid Disfunction Patient has suicidal ideation: No Patient has homicidal ideation: No - Past Medical History Cardiac Medical History: Denies: Hx Coronary Artery Disease, Hx Heart Attack, Hx Hypertension Pulmonary Medical History: Denies: Hx Asthma, Hx Bronchitis, Hx COPD, Hx Pneumonia Neurological Medical History: Denies: Hx Cerebrovascular Accident, Hx Seizures Renal/ Medical History: Denies: Hx Peritoneal Dialysis Musculoskeltal Medical History: Denies Hx Arthritis Psychiatric Medical History: Reports: Hx Attention Deficit Hyperactivity Disorder - Immunizations Hx Diphtheria, Pertussis, Tetanus Vaccination: Yes Review of Systems - Review of Systems Constitutional: denies: Fever, Malaise, Weakness Cardiovascular: denies: Chest pain, Palpitations, Heart racing Respiratory: denies: Cough, Hurts to breathe, Short of breath, Wheezing Gastrointestinal: denies: Abdominal pain, Diarrhea, Nausea Female Genitourinary: See HPI Musculoskeletal: denies: Back pain, Gout, Joint pain Physical Exam - Vital signs Vitals: Temp Pulse Resp BP Pulse Ox 97.7 F 103 H 16 110/70 99 07/11/17 10:22 07/11/17 10:22 07/11/17 10:22 07/11/17 10:22 07/11/17 10:22 Interpretation: Normal - Respiratory Respiratory status: No respiratory distress Chest status: Nontender Breath sounds: Normal Chest palpation: Normal - Cardiovascular Rhythm: Regular Heart sounds: Normal auscultation Murmur: No - Abdominal Inspection: Normal Distension: No distension Bowel sounds: Normal Tenderness: Nontender Organomegaly: No organomegaly - Psychological Associated symptoms: Normal affect, Normal mood - Skin Skin Temperature: Warm Skin Moisture: Dry Skin Color: Normal Course - Re-evaluation Re-evalutation: 07/11/17 11:06 Has follow-up with [facility]. Given some Tylenol at this time. Nothing further based on recommendations [facility]. - Vital Signs Vital signs: Temp Pulse Resp BP Pulse Ox 97.2 F 86 16 106/67 100 07/11/17 11:30 07/11/17 11:30 07/11/17 11:30 07/11/17 11:30 07/11/17 11:30 Discharge - Discharge Clinical Impression: Other acute postprocedural pain Condition: Good Disposition: HOME, SELF-CARE Instructions: Pelvic Pain ([facility]) Prescriptions: Hydrocodone/Acetaminophen [[place] 5-325 mg Tablet] 1 tab PO BID PRN 3 Days #6 tablet PRN Reason: For Pain Scale 3-4 Referrals: GABRIEL GREGORY DO [Primary Care Provider] - Follow up as needed
--- NOTE | 2017-07-11 11:15 | PDOC CONSULTATION ---
Consultation Consult Date: 07/11/17 Attending physician:: KAYLEIGH MENDEZ Consult reason:: Cerclage with abdominal pain and discharge History of Present Illness Admission Date/PCP: GABRIEL GREGORY DO Patient complains of: Vaginal discharge and abdominal pain POD#1 Cerclage placement History of Present Illness: SIOMARA MAYEN is a 27 year old female @ 14wks s/p cerclage placement yesterday who presents c/o vaginal discharge and abdominal cramping. Denies vaginal bleeding or significant pelvic pressure. No other symptoms. She came in because was unsure of what symptoms she should be having after the procedure. Per triage nurse, I was called because the patient had a string hanging but the patient states there is no string hanging. Past Medical History Obstetrical History: none - Cerclage x 3 for incompetent cervix. Second trimester loss x 2 Cardiac Medical History: Denies: Coronary Artery Disease, Myocardial Infarction, Hypertension Pulmonary Medical History: Denies: Asthma, Bronchitis, Chronic Obstructive Pulmonary Disease (COPD), Pneumonia Neurological Medical History: Denies: Seizures Musculoskeltal Medical History: Denies: Arthritis Psychiatric Medical History: Reports: Attention Deficit Hyperactivity Disorder Social History Smoking Status: Never Smoker Family History Family History: None, CAD, Hyperlipidemia, Hypertension, Thyroid Disfunction Parental Family History Reviewed: No Children Family History Reviewed: No Sibling(s) Family History Reviewed.: No Medication/Allergy Home Medications: Vit/Iron Fum/Folic AC [ Tablet] 1 each PO QHS 07/09/17 Hydrocodone/Acetaminophen [[place] 5-325 mg Tablet] 1 tab PO BID PRN 3 Days #6 tablet 07/11/17 Allergies/Adverse Reactions: No Known Allergies Allergy (Verified 07/11/17 10:31) Physical Exam - Physical Exam Vital Signs: Temp Pulse Resp BP Pulse Ox 97.7 F 103 H 16 110/70 99 07/11/17 10:22 07/11/17 10:22 07/11/17 10:22 07/11/17 10:22 07/11/17 10:22 Intake & Output 07/10/17 07/11/17 07/12/17 06:59 06:59 06:59 Weight 73.6 kg - Obstetrical Exam Vagina: normal, discharge - creamy white, no bleeding noted, cerclage knots in place and not on tension Dilation (cm): 1 Effacement (%): 0 Tender: No Assessment & Plan - Diagnosis (1) Cervical incompetence affecting , antepartum Is this a current diagnosis for this admission?: Yes Plan: On exam, cerclage is in place and not on tension. No bleeding noted. Cerclage knot visible. Disc findings with pt and provided reassurance. Disc symptoms to expect of cramping and vaginal discharge. She call or return to ER with significant change in pain, increased pelvic or rectal pressure, vaginal bleeding or any other problems she's concerned about. She has f/u appt scheduled for July 17 and pt is encouraged to keep that appt. (2) Abdominal pain affecting , antepartum Is this a current diagnosis for this admission?: Yes Plan: Disc expected symptoms after cerclage placement. Pt may continue Tylenol prn. - Time Critical Time spent with patient: 15-24 minutes Anticipated discharge: Home - Inpatient Certification Based on my medical assessment, after consideration of the patient's comorbidities, presenting symptoms, or acuity I expect that the services needed warrant INPATIENT care.: No - Plan Summary Plan Summary: See assessment/plan sections
[2017-07-11 11:34] VITALS: BP 106/67
== END 2017-07-11 11:34 | disposition home or self-care (01) ==
LOC: ER 10:15
DX: O99.352 Diseases of the nervous system complicating pregnancy, second trimester (principal); G89.18 Other acute postprocedural pain; R10.2 Pelvic and perineal pain; O34.32 Maternal care for cervical incompetence, second trimester; Z3A.14 14 weeks gestation of pregnancy
CPT/HCPCS: 99284; J3490